=== PATIENT | female | born 1990 | race American Indian/Alaskan Native ===

== ENCOUNTER 2018-08-28 09:39 | Emergency (ER) | payer OTHER ==
[2018-08-28 09:45] VITALS: BP 101/53
--- NOTE | 2018-08-28 10:01 | Emergency Department Report ---
- General Chief complaint: Extremity Injury, Upper Stated complaint: CYST Time Seen by Provider: 08/28/18 09:57 Source: patient Mode of arrival: Ambulatory Limitations: No Limitations - History of Present Illness Initial comments: PRESENTS WITH RECURRENT R ARM ABSCESS. AREA IS OPEN AND DRAINING -: Gradual, days(s) Tetanus Up to Date: yes Context: none Associated symptoms: denies other symptoms Treatments Prior to Arrival: NSAID - Related Data Previous Rx's Medication Instructions Recorded Last Taken Type Amoxicillin 500 mg PO BID #20 capsule 08/28/18 Unknown Rx Allergies Allergy/AdvReac Type Severity Reaction Status Date / Time No Known Allergies Allergy Unverified 05/31/18 14:07 Abscess Boil HPI - HPI Chief Complaint: Extremity Injury, Upper Stated Complaint: CYST Time Seen by Provider: 08/28/18 09:57 Home Medications: Previous Rx's Medication Instructions Recorded Last Taken Type Amoxicillin 500 mg PO BID #20 capsule 08/28/18 Unknown Rx Allergies/Adverse Reactions: Allergies Allergy/AdvReac Type Severity Reaction Status Date / Time No Known Allergies Allergy Unverified 05/31/18 14:07 ED Review of Systems ROS: Stated complaint: CYST Other details as noted in HPI Comment: All other systems reviewed and negative Constitutional: denies: chills, fever Eyes: denies: eye pain ENT: denies: ear pain Respiratory: denies: cough Cardiovascular: denies: palpitations Endocrine: denies: intolerance to cold Gastrointestinal: denies: nausea Genitourinary: as per HPI, abnormal menses (LATE FOR MENSES LMP 1-22). denies: urgency Musculoskeletal: denies: back pain Skin: as per HPI, lesions. 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 Left arm fistula - Family History Family history: no significant - Social History Smoking Status: Current Every Day Smoker Substance Use Type: Alcohol, Marijuana - Medications Home Medications: Home Medications Medication Instructions Recorded Confirmed Last Taken Type Amoxicillin 500 mg PO BID #20 capsule 08/28/18 Unknown Rx ED Physical Exam - General Limitations: No Limitations General appearance: alert, in no apparent distress - Head Head exam: Present: atraumatic - Eye Eye exam: Present: normal appearance, PERRL - ENT ENT exam: Present: normal exam - Neck Neck exam: Present: normal inspection - Respiratory Respiratory exam: Present: normal lung sounds bilaterally - Cardiovascular Cardiovascular Exam: Present: regular rate - GI/Abdominal GI/Abdominal exam: Present: soft, normal bowel sounds - Rectal Rectal exam: Present: deferred - Extremities Exam Extremities exam: Present: normal inspection, full ROM - Back Exam Back exam: Present: normal inspection, full ROM - Neurological Exam Neurological exam: Present: alert, oriented X3 - Psychiatric Psychiatric exam: Present: normal affect, normal mood - Skin Skin exam: Present: warm, dry, other (1 SMALL ABSCESS UNDER R ARM) ED Course Vital Signs 08/28/18 09:43 Temperature 98.3 F Pulse Rate 64 Respiratory 18 Rate Blood Pressure 101/53 O2 Sat by Pulse 100 Oximetry ED Medical Decision Making - Medical Decision Making SIMPLE DRAINING ABSCESS PMH NOTED WILL DC HOME WITH ANTIBIOTICS. EDUCATED PT ON HIDRADENITIS CARE Labs 08/28/18 10:13 Urine HCG, Qual Negative Critical care attestation.: If time is entered above; I have spent that time in minutes in the direct care of this critically ill patient, excluding procedure time. ED Disposition Clinical Impression: Abscess Disposition: DC-01 TO HOME OR SELFCARE Is pt being admited?: No Does the pt Need Aspirin: No Condition: Stable Instructions: Abscess (ED) Additional Instructions: SOAK IN EPSOM SALTS THREE TIMES PER DAY FOR 20 MIN EACH TIME MEDS ORDERED TODAY FOLLOW UP WITH PCP Prescriptions: Amoxicillin 500 mg PO BID #20 capsule Time of Disposition: 10:28
[2018-08-28 10:26] LABS: HCG Qualitative,Urine Negative (Negative)
== END 2018-08-28 10:36 | disposition home or self-care (01) ==
LOC: ED 09:39
DX: L02.413 Cutaneous abscess of right upper limb (principal); I13.2 Hypertensive heart and chronic kidney disease with heart failure and with stage 5 chronic kidney disease, or end stage renal disease; N18.6 End stage renal disease; Z99.2 Dependence on renal dialysis; F17.200 Nicotine dependence, unspecified, uncomplicated
CPT/HCPCS: 81025; 99283

== ENCOUNTER 2018-09-01 23:44 | Emergency (ER) | payer OTHER ==
[2018-09-01 23:54] VITALS: BP 100/64
[2018-09-01] MEDS ORDERED: TYLENOL PO ONE (23:54)
[2018-09-01] MEDS ORDERED: TYLENOL ONE (23:57)
[2018-09-02] MEDS ORDERED: IBUPROFEN PO ONE (00:55)
--- NOTE | 2018-09-02 00:57 | Emergency Department Report ---
Abscess Boil HPI - HPI Chief Complaint: Skin/Abscess/Foreign Body Stated Complaint: boil under armpit Time Seen by Provider: 09/02/18 00:54 Duration: 1 Week Location: Upper Extremity Severity: Severe History: Yes Pain, No Fever, No Purulent Drainage, No Numbness, No Foreign Body, No Previous History, No Insect Bite HPI: 28-year-old female comes in for she has a boil on her right arm times one week. Patient was seen here on 08/28/2018 and was placed on amoxicillin. Patient reports that she was told to return wants the bowl was soft. Patient reports the pain is 8 out of 10. She denies any fever or chills no nausea no vomiting. Home Medications: Previous Rx's Medication Instructions Recorded Last Taken Type Amoxicillin 500 mg PO BID #20 capsule 08/28/18 Unknown Rx Allergies/Adverse Reactions: Allergies Allergy/AdvReac Type Severity Reaction Status Date / Time No Known Allergies Allergy Unverified 05/31/18 14:07 ED Review of Systems ROS: Stated complaint: boil under armpit Other details as noted in HPI Comment: All other systems reviewed and negative Skin: other (boil under right armpit) ED Past Medical Hx - Past Medical History Previous Medical History?: No Hx Hypertension: Yes Hx Congestive Heart Failure: Yes Hx Renal Disease: Yes (HD on --) Additional medical history: HPV - Surgical History Past Surgical History?: No Additional Surgical History: 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 Left arm fistula - Social History Smoking Status: Light Tobacco Smoker Substance Use Type: Alcohol - Medications Home Medications: Home Medications Medication Instructions Recorded Confirmed Last Taken Type Amoxicillin 500 mg PO BID #20 capsule 08/28/18 Unknown Rx ED Abscess Boil Physical Exam - Exam General: Vital signs noted. No distress. Alert and acting appropriately. Size: 4 cm Exam: Yes Tenderness, Yes Fluctuance, Yes Normal Neurologic Exam, Yes Normal Circulation, No Surrounding Cellulites/Erythema, No Lymphangitis, No Crepitation, No Heart Murmur I & D Note - I & D Note I & D Note: DATE OF PROCEDURE: 09/02/18. PREOPERATIVE DIAGNOSES: 1.soft tissue infection right axillary. 2. soft tissue infection. POSTOPERATIVE DIAGNOSES: 1. Right axillary abscess .........soft tissue infection. Infection appeared to be contained to subcutaneous tissue and there was no evidence of necrotizing soft tissue infection including myonecrosis. OPERATION PERFORMED: Incision and drainage of ..... soft tissue abscess. Provider: Nicole Jimenez PA-C. ANESTHESIA: Local. DESCRIPTION OF PROCEDURE: The patient was prepped and draped. Seropurulent, somewhat bloody fluid was noted. The infection appeared contained to a golf ball-sized area in the subcutaneous tissues above the fascia. There was no evidence of myonecrosis, penetration of the fascia or significant extent along the fascia of the infection. We cleaned the area with Betadine and then packed the wound .......... Dry dressings were applied. The patient appeared to tolerate the procedure well. ED Course Vital Signs 09/01/18 09/01/18 23:51 23:56 Temperature 98.1 F Pulse Rate 61 Respiratory 16 18 Rate Blood Pressure 100/64 O2 Sat by Pulse 99 Oximetry Critical care attestation.: If time is entered above; I have spent that time in minutes in the direct care of this critically ill patient, excluding procedure time. ED Disposition Clinical Impression: Abscess Disposition: DC-01 TO HOME OR SELFCARE Is pt being admited?: No Does the pt Need Aspirin: No Condition: Stable Instructions: Abscess (ED), Abscess Incision and Drainage (ED) Additional Instructions: Please continue with her antibiotics and pain medication that was prescribed. Please return back in 3 days to have packing removed and wound reassessed. You can take [id number] Tylenol or Motrin for pain management. Forms: Work/School Release Form(ED), Accompanied Note
== END 2018-09-02 01:38 | disposition home or self-care (01) ==
LOC: ED 23:44
DX: L02.413 Cutaneous abscess of right upper limb (principal); I11.0 Hypertensive heart disease with heart failure; I50.9 Heart failure, unspecified; F17.200 Nicotine dependence, unspecified, uncomplicated

== ENCOUNTER 2018-09-04 09:11 | Emergency (ER) | payer OTHER ==
[2018-09-04 09:16] VITALS: BP 112/54
--- NOTE | 2018-09-04 11:06 | Emergency Department Report ---
Abscess Boil HPI - HPI Chief Complaint: Skin/Abscess/Foreign Body Stated Complaint: RR ARM PACKING REMOVAL Time Seen by Provider: 09/04/18 10:19 Duration: 2 Days Location: Upper Extremity Severity: Mild History: Yes Pain, No Fever, No Purulent Drainage, No Numbness, No Foreign Body, No Previous History, No Insect Bite HPI: This is a 28-year-old female nontoxic, well nourished in appearance, no acute signs of distress presents to the ED with c/o of right axillary packing removal and left finger paronychia. This drainage has been performed a few days ago. She stated he has been taking amoxicillin. Patient denies any fever, chilla, heache, nausea, vomiting, chest pain or shortness of breathe. Home Medications: Previous Rx's Medication Instructions Recorded Last Taken Type Amoxicillin 500 mg PO BID #20 capsule 08/28/18 Unknown Rx Acetaminophen/Codeine [Tylenol 1 tab PO Q6H PRN #12 tab 09/04/18 Unknown Rx /Codeine # 3 tab] Sulfamethoxazole/Trimethoprim 1 each PO BID #14 tablet 09/04/18 Unknown Rx [Bactrim DS TAB] Allergies/Adverse Reactions: Allergies Allergy/AdvReac Type Severity Reaction Status Date / Time No Known Allergies Allergy Unverified 05/31/18 14:07 ED Review of Systems ROS: Stated complaint: RR ARM PACKING REMOVAL Other details as noted in HPI Constitutional: denies: chills, fever Eyes: denies: eye pain, eye discharge, vision change ENT: denies: ear pain, throat pain Respiratory: denies: cough, shortness of breath, wheezing Cardiovascular: denies: chest pain, palpitations Endocrine: no symptoms reported Gastrointestinal: denies: abdominal pain, nausea, diarrhea Genitourinary: denies: urgency, dysuria, discharge Musculoskeletal: denies: back pain, joint swelling, arthralgia Skin: denies: rash, lesions Neurological: denies: headache, weakness, paresthesias Psychiatric: denies: anxiety, depression Hematological/Lymphatic: denies: easy bleeding, easy bruising ED Past Medical Hx - Past Medical History Hx Hypertension: Yes Hx Congestive Heart Failure: Yes Hx Renal Disease: Yes (HD on --) Additional medical history: HPV - Surgical History Additional Surgical History: 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 Left arm fistula - Social History Smoking Status: Light Tobacco Smoker Substance Use Type: Alcohol - Medications Home Medications: Home Medications Medication Instructions Recorded Confirmed Last Taken Type Amoxicillin 500 mg PO BID #20 capsule 08/28/18 Unknown Rx Acetaminophen/Codeine [Tylenol 1 tab PO Q6H PRN #12 tab 09/04/18 Unknown Rx /Codeine # 3 tab] Sulfamethoxazole/Trimethoprim 1 each PO BID #14 tablet 09/04/18 Unknown Rx [Bactrim DS TAB] ED Abscess Boil Physical Exam - Exam General: Vital signs noted. No distress. Alert and acting appropriately. Size: 1 cm Exam: Yes Tenderness, Yes Fluctuance, Yes Normal Neurologic Exam, Yes Normal Circulation, No Surrounding Cellulites/Erythema, No Lymphangitis, No Crepitation, No Heart Murmur I & D Note - I & D Note I & D Note: Under sterile field, I used Betadine to cleanse the area. Patient then soaked finger with warm water and soap. I did use a 15 blade to separate the cuticle from the nail bed. The purulent drainage has been noted. A sterile 4 x 4 with tape has been applied as dressing. Bleeding is under control. Patient tolerated the procedure well with no signs of distress noted. ED Course Vital Signs 09/04/18 09:14 Temperature 97.7 F Pulse Rate 61 Respiratory 20 Rate Blood Pressure 112/54 [Left] O2 Sat by Pulse 100 Oximetry - Reevaluation(s) Reevaluation #1: 09/04/18 11:08 Patient is speaking in full sentences with no signs of distress noted. Critical care attestation.: If time is entered above; I have spent that time in minutes in the direct care of this critically ill patient, excluding procedure time. ED Medical Decision Making - Medical Decision Making This is a 28-year-old female that presents with left paronychia abscess and packing removal. Patient is stable and was examined by me. This is incision and drainage and has been performed and patient tolerated well. A sterile dressing has been applied. Patient was educated on proper wound care. He was instructed to apply warm water with soap to the finger 3-4 times a day. Patient was instructed to refer to Follow-up with a primary care doctor in 3-5 days or if symptoms worsen and continue return to emergency room as soon as possible. At time of discharge, the patient does not seem toxic or ill in appearance. No acute signs of distress noted. Patient agrees to discharge treatment plan of care. No further questions noted by the patient. ED Disposition Clinical Impression: Paronychia of finger of left hand, Encounter for incision and drainage procedure, Abscess packing removal Disposition: DC- TO HOME OR SELFCARE Is pt being admited?: No Does the pt Need Aspirin: No Condition: Stable Instructions: Acetaminophen/Codeine (By mouth) Additional Instructions: Follow-up with a primary care doctor in 3-5 days or if symptoms worsen and continue return to emergency room as soon as possible. Discontinue taking amoxicillin and start taking Bactrim as prescribed. Prescriptions: Sulfamethoxazole/Trimethoprim [Bactrim DS TAB] 1 each PO BID #14 tablet Acetaminophen/Codeine [Tylenol /Codeine # 3 tab] 1 tab PO Q6H PRN #12 tab PRN Reason: Pain , Severe (7-10) Referrals: [facility] MD AZIZA [Primary Care Provider] - 3-5 Days PRIMARY CAREMD [Referring] - 3-5 Days RADHA GASTON MD [Staff Physician] - 3-5 Days [facility] [Outside] - 3-5 Days [facility] [Outside] - 3-5 Days Forms: Work/School Release Form(ED)
[2018-09-04] MEDS ORDERED: IBUPROFEN PO ONE (11:13)
== END 2018-09-04 11:24 | disposition home or self-care (01) ==
LOC: ED 09:11
DX: Z48.00 Encounter for change or removal of nonsurgical wound dressing (principal); I13.2 Hypertensive heart and chronic kidney disease with heart failure and with stage 5 chronic kidney disease, or end stage renal disease; N18.6 End stage renal disease; Z99.2 Dependence on renal dialysis; F17.200 Nicotine dependence, unspecified, uncomplicated
CPT/HCPCS: 99282

== ENCOUNTER 2018-10-04 15:24 | Emergency (ER) | payer OTHER ==
[2018-10-04 15:55] VITALS: BP 107/61
[2018-10-04] MEDS ORDERED: IBUPROFEN PO ONE (18:55)
--- NOTE | 2018-10-04 20:16 | Emergency Department Report ---
- General Chief complaint: Skin/Abscess/Foreign Body Stated complaint: CARPEL TUNNEL IN BOTH HANDS Time Seen by Provider: 10/04/18 19:58 Source: patient Mode of arrival: Ambulatory Limitations: No Limitations - History of Present Illness Initial comments: Pt is a 28 yo female who presents to the ED with c/o an abscess to the right axilla that began two weeks ago. She states it was initially a small bump but has grown in size. The patient states she was seen at [facility] on 10/01/18 and was placed on bactrim x 7 days and did not have an I&D at that time. The patient states that it has not decreased in size since taking the bactrim. She states two nights ago she had a subjective fever but has not had one since. Pt has the same complaint last month and had a I&D in the right axilla. The patient states she also had a tingling sensation in her thumb, index finger, and middle finger that occurred today. She states she also has some bilateral wrist discomfort. 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 The patient states she has had these exact same sx previously. She has not tried any treatment. pt does not wear wrist wraps. Pt has not seen her PCP for this complaint. - Related Data Previous Rx's Medication Instructions Recorded Last Taken Type Amoxicillin 500 mg PO BID #20 capsule 08/28/18 Unknown Rx Acetaminophen/Codeine [Tylenol 1 tab PO Q6H PRN #12 tab 09/04/18 Unknown Rx /Codeine # 3 tab] Sulfamethoxazole/Trimethoprim 1 each PO BID #14 tablet 09/04/18 Unknown Rx [Bactrim DS TAB] Allergies Allergy/AdvReac Type Severity Reaction Status Date / Time No Known Allergies Allergy Unverified 05/31/18 14:07 Abscess Boil HPI - HPI Chief Complaint: Skin/Abscess/Foreign Body Stated Complaint: CARPEL TUNNEL IN BOTH HANDS Time Seen by Provider: 10/04/18 19:58 Home Medications: Previous Rx's Medication Instructions Recorded Last Taken Type Amoxicillin 500 mg PO BID #20 capsule 08/28/18 Unknown Rx Acetaminophen/Codeine [Tylenol 1 tab PO Q6H PRN #12 tab 09/04/18 Unknown Rx /Codeine # 3 tab] Sulfamethoxazole/Trimethoprim 1 each PO BID #14 tablet 09/04/18 Unknown Rx [Bactrim DS TAB] Allergies/Adverse Reactions: Allergies Allergy/AdvReac Type Severity Reaction Status Date / Time No Known Allergies Allergy Unverified 05/31/18 14:07 ED Review of Systems ROS: Stated complaint: CARPEL TUNNEL IN BOTH HANDS Other details as noted in HPI Comment: All other systems reviewed and negative ED Past Medical Hx - Past Medical History Hx Hypertension: Yes Hx Congestive Heart Failure: Yes Hx Renal Disease: Yes (HD on --) Additional medical history: HPV - Surgical History Additional Surgical History: 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 Left arm fistula - Social History Smoking Status: Current Some Day Smoker Substance Use Type: None - Medications Home Medications: Home Medications Medication Instructions Recorded Confirmed Last Taken Type Amoxicillin 500 mg PO BID #20 capsule 08/28/18 Unknown Rx Acetaminophen/Codeine [Tylenol 1 tab PO Q6H PRN #12 tab 09/04/18 Unknown Rx /Codeine # 3 tab] Sulfamethoxazole/Trimethoprim 1 each PO BID #14 tablet 09/04/18 Unknown Rx [Bactrim DS TAB] ED Physical Exam - General Limitations: No Limitations General appearance: alert, in no apparent distress - Head Head exam: Present: atraumatic, normocephalic - Eye Eye exam: Present: normal appearance - ENT ENT exam: Present: mucous membranes moist - Respiratory Respiratory exam: Present: normal lung sounds bilaterally. Absent: respiratory distress, wheezes, rales, rhonchi, stridor, chest wall tenderness, accessory muscle use, decreased breath sounds, prolonged expiratory - Cardiovascular Cardiovascular Exam: Present: regular rate, normal rhythm, normal heart sounds. Absent: systolic murmur, diastolic murmur, rubs, gallop - Extremities Exam Extremities exam: Present: normal inspection, full ROM, other (FROM of the bilateral wrist, no TTP, (+) phalens sign, sensation intact, neurovascularly int act). Absent: tenderness - Neurological Exam Neurological exam: Present: alert, oriented X3 - Psychiatric Psychiatric exam: Present: normal affect, normal mood - Skin Skin exam: Present: warm, dry, other (3.5 cm area of induration and fluctuance to the right axilla, prior scar from previous incision and drainage is clean, dry, intact and just distal to this abscess, no surrounding erythema, no increased warmth, no active drainage) ED Course Vital Signs 10/04/18 15:52 Temperature 98.7 F Pulse Rate 77 Respiratory 18 Rate Blood Pressure 107/61 O2 Sat by Pulse 100 Oximetry - I & D Right Type of Procedure: Simple Site: right axilla, 3.5 cm abscess Blade Size: 11 I & D Procedure: betadine prep, sterile drapes applied, sterile dressing applied Progress: right axilla prepped with betadine and draped. 3 cc of 1% lidocaine used. 1.5 cm incision made overlying the area of fluctuance, moderate amount of purulent drainage and bloody drainage expressed, 30 cc of saline irrigated, iodoform packing placed, sterile gauze placed, pt tolerated well, bleeding is control, no complications ED Medical Decision Making - Medical Decision Making Pt is a 28 yo female who presents to the ED with c/o an abscess to the right axilla that began two weeks ago. She states it was initially a small bump but has grown in size. The patient states she was seen at [facility] on 10/01/18 and was placed on bactrim x 7 days and did not have an I&D at that time. The patient states that it has not decreased in size since taking the bactrim. She states two nights ago she had a subjective fever but has not had one since. Pt has the same complaint last month and had a I&D in the right axilla. VSS. I&D performed with purulent drainage expressed, iodoform gauze placed, bleeding controlled, pt tolerated, sterile gauze placed. Will have pt continue to take the bactrim that she has already been taking that was prescribed on 10/01/18 at [facility]. Advised pt that packing would need to be removed in the next 2-3 days. Discussed that the removal can occur at a primary care doctor or if unable to see a PCP then may return to the ED for removal. Discussed in detail with patient if begin to experience any new or worsening symptoms or increased drainage/signs of cellulitis to return to the ED. Discussed with pt to throw away razors and avoid shaving the area for at least two weeks. Discussed with patient to consider to use other options for hair removal such as schofield, wax, etc. The patient states she also had a tingling sensation in her thumb, index finger, and middle finger that occurred today. She states she also has some bilateral wrist discomfort. 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 The patient states she has had these exact same sx previously. She has not tried any treatment. pt does not wear wrist wraps. Pt has not seen her PCP for this complaint. on examination patient has (+) phalens test, pt is neurovascularly intact, FROM of the bilateral wrist, no TTP. Advised pt that she may use wrist wraps. Advised pt to also discuss with her primary care doctor for further management. - Differential Diagnosis abscess, cellulitis, hidradenitis suppurativa, carpal tunnel Critical care attestation.: If time is entered above; I have spent that time in minutes in the direct care of this critically ill patient, excluding procedure time. ED Disposition Clinical Impression: Abscess of right axilla, Encounter for incision and drainage procedure Carpal tunnel syndrome Qualifiers: Laterality: bilateral Qualified Code(s): G56.03 - Carpal tunnel syndrome, bilateral upper limbs Disposition: TO HOME OR SELFCARE Is pt being admited?: No Does the pt Need Aspirin: No Condition: Stable Instructions: Abscess Incision and Drainage (ED), Carpal Tunnel Syndrome (ED) Additional Instructions: Complete bactrim that you were prescribed by Elie Sultana. Packing will need to be removed in the next 2-3 days. Removal can occur at a primary care doctor or if unable to see a primary care doctor then may return to the ED for removal. If begin to experience any new or worsening symptoms or increased drainage/signs of infection to return to the emergency room. Throw away razors and avoid shaving the area for at least two weeks. Consider to use other options for hair removal such as schofield, wax, etc. May use wrist wraps for carpal tunnel symptoms. Speak with primary care doctor about carpal tunnel for further management. May take tylenol or motrin for pain over the counter. [facility] - 2-3 Days Time of Disposition: 21:19 Print Language: BULGARIAN
[2018-10-04] MEDS ORDERED: XYLOCAINE 1% MPF 5 mL INFILTRATI ONE (20:26)
== END 2018-10-04 21:30 | disposition home or self-care (01) ==
LOC: ED 15:24
DX: L02.411 Cutaneous abscess of right axilla (principal); G56.03 Carpal tunnel syndrome, bilateral upper limbs; I13.2 Hypertensive heart and chronic kidney disease with heart failure and with stage 5 chronic kidney disease, or end stage renal disease; N18.6 End stage renal disease; F17.200 Nicotine dependence, unspecified, uncomplicated; Z99.2 Dependence on renal dialysis

== ENCOUNTER 2018-12-06 18:51 | Emergency (ER) | payer SELFPAY ==
[2018-12-06 19:46] VITALS: BP 93/48
--- NOTE | 2018-12-06 19:54 | Emergency Department Report ---
Chief Complaint: Dental/Oral Stated Complaint: MOUTH SORES Time Seen by Provider: 12/06/18 19:42 - HPI History of Present Illness: 28 y old female presents to Ed cc of lip and mouth ulcer x 1 week states she has been taking acyclovir x 3 days as prescribed by pcp pt admits to oral sex in the past week - ROS Review of Systems: As noted in HPI - Exam Vital Signs: MOUTH: Ulcers noted on lid, in mild, white small patches noted on uvula and tonsils. MSE screening note: Focused history and physical exam performed. Due to findings the following was ordered: ED Medical Decision Making - Medical Decision Making Rapid strep test, Monospot test ordered. ED Disposition for MSE Disposition: - TO HOME OR SELFCARE Condition: Stable Referrals: PRIMARY CARE, [Primary Care Provider] - 3-5 Days
== END 2018-12-06 22:30 | disposition home or self-care (01) ==
LOC: ED 18:51
DX: K13.79 Other lesions of oral mucosa (principal); Z53.21 Procedure and treatment not carried out due to patient leaving prior to being seen by health care provider